=== PATIENT | female | born 1975 | race African-American/Black ===

== ENCOUNTER 2016-12-24 23:32 | Emergency (ER) | payer MEDICAID ==
[~2016-12-24] VITALS: Ht 165.1 cm; Wt 131.0 kg
[~2016-12-24 23:32] MED LIST: ASPI-518; CLOP75TA33; FAMO20TA8; METO-298; SIMV40TA5
[2016-12-25] MEDS ORDERED: NITROGLYCERIN OINT 1GM/INCH UDPKT TD ONE (01:15)
[2016-12-25] MEDS ORDERED: ONDANSETRON HCL 4MG/2ML VIAL IV STA (01:15)
[2016-12-25] MEDS ORDERED: MORPHINE SULFATE 4 MG/ML CPJ (NOT FOR IM USE) IV STA (01:15)
[2016-12-25] MEDS ORDERED: ASPIRIN 81MG TABLET PO ONE (01:15)
[2016-12-25 01:39] LABS: BASOPHILS % 0.9 % (0.0-2.0); EOSINOPHILS % 0.5 % (0.0-5.0); HEMATOCRIT. 36.1 % (36.0-48.0); HEMOGLOBIN. 11.7 g/dL (12.0-16.0); LYMPHOCYTES % 20.5 % (20.0-50.0); MEAN CORPUSCULAR HEMOGLOBIN 24.8 pg (28.0-32.0); MEAN CORPUSCULAR VOLUME 76.1 fL (81.0-99.0); MEAN PLATELET VOLUME 8.8 fl (7.4-10.4); MONOCYTES % 7.7 % (2.0-8.0); NEUTROPHILS % 70.4 % (40.0-76.0); PLATELET 320 x1000/uL (130-400); RED BLOOD CELL COUNT 4.74 mill/uL (4.2-5.4); RED CELL DISTRIBUTION WIDTH 17.7 % (11.6-14.6)
[2016-12-25 01:42] LABS: HCG SCREEN NEGATIVE
[2016-12-25 01:48] LABS: CARBON DIOXIDE 28 mEq/L (21-32); CHLORIDE 101 mEq/L (98-107); TROPONIN I < 0.02 ng/mL (0.00-0.04)
[2016-12-25 06:06] VITALS: BP 152/101
== END 2016-12-25 06:09 | disposition left against medical advice (07) ==
LOC: ER 23:43 → EDBEDREQ 12-25 05:52 → EDBEDREQTM 12-25 05:52 → ER 12-25 06:09 → ENRESERV 12-25 07:02 → CANRESERV 12-25 07:02 → CANBEDREQ 12-25 22:59
DX: R07.89 Other chest pain (principal); I11.9 Hypertensive heart disease without heart failure; I51.9 Heart disease, unspecified; E78.00 Pure hypercholesterolemia, unspecified; I25.2 Old myocardial infarction; Z88.0 Allergy status to penicillin; Z79.82 Long term (current) use of aspirin
CPT/HCPCS: 36415; 71010; 80053; 83880; 84484; 84703; 85025; 85379; 93005; 96374; 96375; 99285; J2270; J2405; Z7610

== ENCOUNTER 2017-01-30 07:26 | Emergency (ER) | payer MEDICAID ==
[~2017-01-30] VITALS: Ht 165.1 cm; Wt 127.0 kg
[2017-01-30] MEDS ORDERED: KETOROLAC 60MG/2ML VIAL IM STA (10:23)
[2017-01-30] MEDS ORDERED: ONDANSETRON 4MG ODT PO STA (10:23)
[2017-01-30 10:45] LABS: CLARITY URINE CLOUDY (CLEAR); COLOR URINE YELLOW (YELLOW); GLUCOSE URINE NEGATIVE (NEGATIVE); KETONES URINE NEGATIVE (NEGATIVE); LEUKOCYTE ESTERASE URINE 2+ (NEGATIVE); NITRITE URINE NEGATIVE (NEGATIVE); OCCULT BLOOD URINE NEGATIVE (NEGATIVE); PROTEIN URINE NEGATIVE (NEGATIVE); SPECIFIC GRAVITY URINE 1.019 (1.005-1.030); UROBILINOGEN URINE 0.2 E.U./dL (0.2-1.0)
[2017-01-30 11:05] LABS: BASOPHILS % 1.2 % (0.0-2.0); EOSINOPHILS % 0.5 % (0.0-5.0); HEMATOCRIT. 36.9 % (36.0-48.0); LYMPHOCYTES % 27.1 % (20.0-50.0); MEAN CORPUSCULAR HEMOGLOBIN 24.9 pg (28.0-32.0); MEAN CORPUSCULAR VOLUME 76.6 fL (81.0-99.0); MEAN PLATELET VOLUME 8.5 fl (7.4-10.4); MONOCYTES % 8.5 % (2.0-8.0); NEUTROPHILS % 62.7 % (40.0-76.0); PLATELET 333 x1000/uL (130-400); RED BLOOD CELL COUNT 4.82 mill/uL (4.2-5.4); RED CELL DISTRIBUTION WIDTH 17.4 % (11.6-14.6)
[2017-01-30 11:15] LABS: HCG SCREEN NEGATIVE
[2017-01-30 11:22] LABS: CARBON DIOXIDE 30 mEq/L (21-32); CHLORIDE 104 mEq/L (98-107)
[2017-01-30] MEDS ORDERED: TRAMADOL 50MG TABLET PO ONE (12:15)
[2017-01-30] MEDS ORDERED: MORPHINE SULFATE 10 MG/ML CPJ IM ONE (12:30)
[2017-01-30 14:00] VITALS: BP 136/90
== END 2017-01-30 14:30 | disposition home or self-care (01) ==
LOC: ER 07:26
DX: K76.0 Fatty (change of) liver, not elsewhere classified (principal); N39.0 Urinary tract infection, site not specified; I10 Essential (primary) hypertension; E78.00 Pure hypercholesterolemia, unspecified; I25.2 Old myocardial infarction; Z86.73 Personal history of transient ischemic attack (TIA), and cerebral infarction without residual deficits; Z88.0 Allergy status to penicillin; Z91.013 Allergy to seafood
CPT/HCPCS: 36415; 76705; 80053; 81001; 83690; 84703; 85025; 96372; 99285; J1885; J2270; Q0162

== ENCOUNTER 2017-02-17 14:48 | Emergency (ER) | payer MEDICAID, OTHER ==
[~2017-02-17] VITALS: Ht 165.1 cm; Wt 127.0 kg
[~2017-02-17 14:48] MED LIST changes: -METO-298; +METO-385
[2017-02-17 15:31] VITALS: BP 191/124
== END 2017-02-17 22:00 | disposition left against medical advice (07) ==
LOC: ER 21:40
DX: R11.0 Nausea (principal); R42 Dizziness and giddiness; Z53.21 Procedure and treatment not carried out due to patient leaving prior to being seen by health care provider

== ENCOUNTER 2017-05-19 21:58 | Emergency (ER) | payer MEDICAID ==
[~2017-05-19] VITALS: Ht 177.8 cm; Wt 141.0 kg
[2017-05-19] MEDS ORDERED: SODIUM CHLORIDE 0.9% 1,000 ML IV ONE (22:56)
[2017-05-19] MEDS ORDERED: FAMOTIDINE 20MG/2ML VIAL IV ONE (23:00)
[2017-05-19] MEDS ORDERED: DIPHENHYDRAMINE 50MG/ML VIAL IV ONE (23:00)
[2017-05-19] MEDS ORDERED: METHYLPREDNISOLONE SOD SUCC 125 MG/2 ML VIAL IV ONE (23:00)
[2017-05-19 23:20] LABS: BASOPHILS % 1.2 % (0.0-2.0); EOSINOPHILS % 1.2 % (0.0-5.0); HEMATOCRIT. 36.3 % (36.0-48.0); LYMPHOCYTES % 31.1 % (20.0-50.0); MEAN CORPUSCULAR VOLUME 75.8 fL (81.0-99.0); MEAN PLATELET VOLUME 8.4 fl (7.4-10.4); MONOCYTES % 8.8 % (2.0-8.0); NEUTROPHILS % 57.7 % (40.0-76.0); PLATELET 292 x1000/uL (130-400); RED BLOOD CELL COUNT 4.79 mill/uL (4.2-5.4); RED CELL DISTRIBUTION WIDTH 17.9 % (11.6-14.6)
[2017-05-19 23:26] LABS: CHLORIDE 103 mEq/L (98-107)
[2017-05-19 23:30] LABS: CARBON DIOXIDE 26 mEq/L (21-32)
[2017-05-20] MEDS ORDERED: HYDROCODONE/ACETAMINOPHEN 5/325MG TABLET PO ONE (02:00)
[2017-05-20 03:58] VITALS: BP 169/99
[2017-05-22] MEDS ORDERED: LISI10TA5 PO (08:55)
[2017-05-22] MEDS ORDERED: METO-385 PO (09:11)
== END 2017-05-20 04:00 | disposition home or self-care (01) ==
LOC: ER 23:22
DX: O9A.211 Injury, poisoning and certain other consequences of external causes complicating pregnancy, first trimester (principal); T78.40XA Allergy, unspecified, initial encounter; O99.211 Obesity complicating pregnancy, first trimester; E66.9 Obesity, unspecified; O16.1 Unspecified maternal hypertension, first trimester; Z3A.01 Less than 8 weeks gestation of pregnancy; Z79.82 Long term (current) use of aspirin; Z88.0 Allergy status to penicillin
CPT/HCPCS: 36415; 80053; 85025; 96361; 96374; 96375; 99285; J1200; J2930; J3490; J7030

== ENCOUNTER 2017-11-26 07:00 | Emergency (ER) | payer MEDICAID ==
[~2017-11-26] VITALS: Ht 165.1 cm; Wt 127.0 kg
[~2017-11-26 07:00] MED LIST changes: +AMLO10TA80 PO; +ATOR20TA PO; -CLOP75TA33; +DOCU-138 PO; -FAMO20TA8; +LOSA50TA3 PO; -METO-385; -SIMV40TA5
[2017-11-26] MEDS ORDERED: KETOROLAC 60MG/2ML VIAL IM ONE (08:45)
[2017-11-26 10:09] LABS: CLARITY URINE CLOUDY (CLEAR); COLOR URINE YELLOW (YELLOW); KETONES URINE TRACE (NEGATIVE); LEUKOCYTE ESTERASE URINE 3+ (NEGATIVE); NITRITE URINE NEGATIVE (NEGATIVE); OCCULT BLOOD URINE NEGATIVE (NEGATIVE); PH URINE 5.5 (4.5-8.0); PROTEIN URINE NEGATIVE (NEGATIVE); SPECIFIC GRAVITY URINE 1.022 (1.005-1.030)
[2017-11-26] MEDS ORDERED: MORPHINE SULFATE 2 MG/ML CPJ (NOT FOR IM USE) IV ONE (11:00)
[2017-11-26 11:08] LABS: HEMATOCRIT. 35.9 % (36.0-48.0); HEMOGLOBIN. 11.8 g/dL (12.0-16.0); MEAN CORPUSCULAR HEMOGLOBIN 24.5 pg (28.0-32.0); MEAN CORPUSCULAR VOLUME 74.5 fL (81.0-99.0); MEAN PLATELET VOLUME 8.2 fl (7.4-10.4); PLATELET 389 x1000/uL (130-400); RED BLOOD CELL COUNT 4.83 mill/uL (4.2-5.4); RED CELL DISTRIBUTION WIDTH 16.9 % (11.6-14.6)
[2017-11-26 11:13] LABS: CHLORIDE 99 mEq/L (98-107)
[2017-11-26] MEDS ORDERED: ONDANSETRON HCL 4MG/2ML VIAL IV ONE (11:15)
[2017-11-26 11:25] LABS: PLATELET ESTIMATE NORMAL
[2017-11-26] MEDS ORDERED: IOHEXOL-350 100 ML BOTTLE ONE (13:48)
[2017-11-26 15:27] VITALS: BP 130/75
== END 2017-11-26 15:30 | disposition home or self-care (01) ==
LOC: ER 07:00
DX: I31.3 Pericardial effusion (noninflammatory) (principal); R09.1 Pleurisy; I11.0 Hypertensive heart disease with heart failure; I50.9 Heart failure, unspecified; Z88.0 Allergy status to penicillin; Z91.013 Allergy to seafood
CPT/HCPCS: 36415; 71045; 71275; 80053; 81003; 84484; 85025; 85379; 87086; 93005; 96372; 96374; 96375; 99285; J1885; J2270; J2405; Q9967; Z7610

== ENCOUNTER 2018-05-07 23:23 | Emergency (ER) | payer MEDICAID ==
[~2018-05-07] VITALS: Ht 165.1 cm; Wt 130.0 kg
[2018-05-08] MEDS ORDERED: IBUPROFEN 600MG TABLET PO STA (00:20)
[2018-05-08 01:05] LABS: BASOPHILS % 0.5 % (0.0-2.0); EOSINOPHILS % 1.6 % (0.0-5.0); HEMATOCRIT. 34.1 % (36.0-48.0); HEMOGLOBIN. 11.4 g/dL (12.0-16.0); LYMPHOCYTES % 28.5 % (20.0-50.0); MEAN CORPUSCULAR HEMOGLOBIN 24.7 pg (28.0-32.0); MEAN CORPUSCULAR VOLUME 73.9 fL (81.0-99.0); MEAN PLATELET VOLUME 8.3 fl (7.4-10.4); MONOCYTES % 10.3 % (2.0-8.0); NEUTROPHILS % 59.1 % (40.0-76.0); PLATELET 315 x1000/uL (130-400); RED BLOOD CELL COUNT 4.61 mill/uL (4.2-5.4); RED CELL DISTRIBUTION WIDTH 17.5 % (11.6-14.6)
[2018-05-08 01:11] LABS: CHLORIDE 99 mEq/L (98-107)
[2018-05-08] MEDS ORDERED: ACETAMINOPHEN 325MG TABLET PO ONE (01:30)
[2018-05-08 01:39] LABS: HCG SCREEN NEGATIVE
[2018-05-08] MEDS ORDERED: POTASSIUM CHLORIDE 20MEQ TABLET SR PO ONE ×2 (01:45)
[2018-05-08 02:39] VITALS: BP 127/66
== END 2018-05-08 02:57 | disposition home or self-care (01) ==
LOC: ER 23:23
DX: I11.0 Hypertensive heart disease with heart failure (principal); E87.6 Hypokalemia; R07.89 Other chest pain; I50.9 Heart failure, unspecified; E11.9 Type 2 diabetes mellitus without complications; Z88.0 Allergy status to penicillin; Z91.013 Allergy to seafood; Z79.82 Long term (current) use of aspirin
CPT/HCPCS: 36415; 71045; 83880; 84484; 84703; 93005; 99284

== ENCOUNTER 2019-01-24 14:54 | Emergency (ER) | payer MEDICAID ==
[~2019-01-24] VITALS: Ht 165.1 cm; Wt 114.0 kg
[2019-01-24 17:18] LABS: BASOPHILS % 1.1 % (0.0-2.0); HEMATOCRIT. 38.2 % (36.0-48.0); HEMOGLOBIN. 12.8 g/dL (12.0-16.0); LYMPHOCYTES % 26.4 % (20.0-50.0); MEAN CORPUSCULAR HEMOGLOBIN 26.7 pg (28.0-32.0); MEAN CORPUSCULAR VOLUME 79.7 fL (81.0-99.0); MEAN PLATELET VOLUME 8.5 fl (7.4-10.4); MONOCYTES % 9.3 % (2.0-8.0); NEUTROPHILS % 62.2 % (40.0-76.0); PLATELET 341 x1000/uL (130-400); RED BLOOD CELL COUNT 4.79 mill/uL (4.2-5.4); RED CELL DISTRIBUTION WIDTH 16.2 % (11.6-14.6)
[2019-01-24 17:24] LABS: CHLORIDE 102 mEq/L (98-107)
[2019-01-24] MEDS ORDERED: POTASSIUM CHLORIDE 20MEQ TABLET SR PO ONE (17:45)
[2019-01-24 18:17] VITALS: BP 148/96
== END 2019-01-24 18:36 | disposition home or self-care (01) ==
LOC: ER 14:54
DX: E87.6 Hypokalemia (principal); R05 Cough; I11.0 Hypertensive heart disease with heart failure; I50.9 Heart failure, unspecified; E11.9 Type 2 diabetes mellitus without complications; Z88.0 Allergy status to penicillin; Z79.82 Long term (current) use of aspirin
CPT/HCPCS: 36415; 71045; 83880; 84484; 93005; 99284

== ENCOUNTER 2019-05-25 17:09 | Emergency (ER) | payer SELFPAY ==
[~2019-05-25] VITALS: Ht 165.1 cm; Wt 136.0 kg
[2019-05-25] MEDS: KETOROLAC 60MG/2ML VIAL IM ONE (17:41)
[2019-05-25 17:56] VITALS: BP 158/89
== END 2019-05-25 17:50 | disposition home or self-care (01) ==
LOC: ER 17:09
DX: S33.5XXA Sprain of ligaments of lumbar spine, initial encounter (principal); V49.49XA Driver injured in collision with other motor vehicles in traffic accident, initial encounter; Y93.89 Activity, other specified; Y92.89 Other specified places as the place of occurrence of the external cause; Y99.8 Other external cause status; I11.0 Hypertensive heart disease with heart failure; I50.9 Heart failure, unspecified; E11.9 Type 2 diabetes mellitus without complications; Z79.82 Long term (current) use of aspirin; Z79.899 Other long term (current) drug therapy; Z88.0 Allergy status to penicillin
CPT/HCPCS: 96372; 99283; J1885

== ENCOUNTER 2024-02-19 06:27 | Emergency (ER) | payer OTHER ==
[~2024-02-19] VITALS: Ht 170.2 cm; Wt 113.0 kg
[~2024-02-19 06:27] MED LIST changes: +CEPH250C2 MT; +CYCL10TA21 PO; +HYDR-4001 MT; +LOSA-413 PO; -LOSA50TA3 PO
[2024-02-19 06:31] VITALS: O2SAT 98
[2024-02-19 07:18] LABS: CLARITY URINE CLEAR (CLEAR); COLOR URINE YELLOW (YELLOW); GLUCOSE URINE NEGATIVE (NEGATIVE); KETONES URINE NEGATIVE (NEGATIVE); LEUKOCYTE ESTERASE URINE NEGATIVE (NEGATIVE); NITRITE URINE NEGATIVE (NEGATIVE); OCCULT BLOOD URINE NEGATIVE (NEGATIVE); PROTEIN URINE TRACE (NEGATIVE); SPECIFIC GRAVITY URINE 1.007 (1.005-1.030); UROBILINOGEN URINE 0.2 E.U./dL (0.2-1.0)
[2024-02-19 07:36] LABS: *AMPHETAMINES SCREEN URINE NEGATIVE (NEGATIVE); *BARBITURATES SCREEN URINE NEGATIVE (NEGATIVE); *BENZODIAZEPINES SCREEN URINE NEGATIVE (NEGATIVE); *COCAINE SCREEN URINE NEGATIVE (NEGATIVE)
[2024-02-19 07:37] LABS: CANNABINOID URINE SCREEN NEGATIVE (NEGATIVE); ECSTASY MDMA SCREEN URINE NEGATIVE (NEGATIVE); METHADONE URINE SCREEN NEGATIVE (NEGATIVE); OPIATES URINE SCREEN PRESUMPTIVE POSITIVE (NEGATIVE); PHENCYCLIDINE URINE SCREEN NEGATIVE (NEGATIVE)
[2024-02-19 07:42] LABS: BACTERIA URINE FEW; RBC URINE 0-2 /hpf (0-2); SQUAMOUS EPITHELIAL CELL URINE FEW /lpf (RARE/1+); WBC URINE 0-2 /hpf (0-2); YEAST URINE NONE SEEN
[2024-02-19 07:51] LABS: BASOPHILS % 0.8 % (0.0-2.0); EOSINOPHILS % 1.9 % (0.0-5.0); HEMATOCRIT. 38.1 % (36.0-48.0); HEMOGLOBIN. 12.9 g/dL (12.0-16.0); LYMPHOCYTES % 25.6 % (20.0-50.0); MEAN CORPUSCULAR HEMOGLOBIN 28.3 pg (28.0-32.0); MEAN CORPUSCULAR HGB CONC 33.8 g/dL (31.0-37.0); MEAN CORPUSCULAR VOLUME 83.8 fL (81.0-99.0); MEAN PLATELET VOLUME 8.6 fl (7.4-10.4); MONOCYTES % 8.1 % (2.0-8.0); NEUTROPHILS % 63.6 % (40.0-76.0); PLATELET 292 x1000/uL (130-400); RED BLOOD CELL COUNT 4.55 mill/uL (4.2-5.4); RED CELL DISTRIBUTION WIDTH 15.1 % (11.6-14.6); WHITE BLOOD COUNT 8.4 x1000/uL (4.5-11.0)
[2024-02-19 08:04] LABS: CHLORIDE 105 mEq/L (98-107); POTASSIUM 3.1 mEq/L (3.5-5.1); SODIUM 138 mEq/L (136-145)
[2024-02-19 08:05] LABS: CARBON DIOXIDE 26 mEq/L (21-32)
[2024-02-19 08:06] LABS: CALCIUM 8.3 mg/dL (8.7-10.4); PROTHROMBIN TIME 10.7 sec (9.6-11.0)
[2024-02-19 08:10] LABS: CREATININE 0.8 mg/dL (0.6-1.0); GLUCOSE 121 mg/dL (70-105)
[2024-02-19 08:11] LABS: TROPONIN I HIGH SENSITIVITY 11 ng/L (3.0-34); UREA NITROGEN BLOOD 7 mg/dL (9-23)
[2024-02-19 08:13] LABS: PHOSPHORUS 3.4 mg/dL (2.5-4.9)
[2024-02-19 08:15] LABS: HCG SCREEN NEGATIVE; T4 FREE 0.96 ng/dL (0.89-1.76); THYROID STIMULATING HORMONE 2.41 uIU/mL (0.55-4.78)
[2024-02-19 08:20] LABS: ETHANOL BLOOD < 10 mg/dL (<10)
[2024-02-19] MEDS ORDERED: POTASSIUM CHLORIDE 20MEQ TABLET SR PO ONE (08:30)
[2024-02-19] MEDS: MAGNESIUM 2 G PREMIX 50 ML IV ONE (08:45)
[2024-02-19] MEDS: POTASSIUM CHLORIDE 20MEQ TABLET SR PO NR (10:47)
[2024-02-19 10:49] VITALS: BP 130/75; PULSE 86; RESP 11; TEMP 36.83628; O2SAT 99
== END 2024-02-19 11:02 | disposition home or self-care (01) ==
LOC: ER 06:27
DX: I47.10 Supraventricular tachycardia, unspecified (principal); R00.2 Palpitations; E87.6 Hypokalemia; E83.42 Hypomagnesemia; E78.00 Pure hypercholesterolemia, unspecified; I11.9 Hypertensive heart disease without heart failure; I25.2 Old myocardial infarction; Z88.0 Allergy status to penicillin; Z79.899 Other long term (current) drug therapy
CPT/HCPCS: 80305; 80048; 81003; 80320; 84703; 83880; 84439; 83690; 83735; 84100; 84443; 85025; 85610; 84484; 36415; 71045; 93005; 96365; 96366; 99285; 99406; 84481; J3475; G0480